=== PATIENT | male | born 1965 | race Two or more races ===

== ENCOUNTER 2025-02-28 05:36 | Day surgery (SDC) | payer OTHER ==
[2025-02-24 14:30] VITALS: BMI 27.3
[2025-02-28] MEDS ORDERED: Lidocaine 1% w/Epinephrine 1:200K 30 ML VIAL ONE (06:24)
[2025-02-28] MEDS ORDERED: Rocuronium Bromide 10 MG/ML (10ML VIAL) ONE (06:27)
[2025-02-28] MEDS ORDERED: Lidocaine 1% PF 5 ML VIAL ONE (06:27)
[2025-02-28] MEDS ORDERED: Ondansetron PF 4 MG/2 ML Vial ONE (06:27)
[2025-02-28] MEDS ORDERED: SUGAMMADEX SODIUM 200 MG/2 ML VIAL ONE (06:27)
[2025-02-28] MEDS ORDERED: PROPOFOL 40 ML ONE (06:28)
[2025-02-28] MEDS ORDERED: CEFAZOLIN 2 GM VIAL ONE (06:51)
[2025-02-28] MEDS ORDERED: Hydrocodone-Acetamin 15 ML UDCUP ONE (09:32)
== END 2025-02-28 11:00 | disposition home or self-care (01) ==
LOC: CSHSDC 05:36
PROVIDERS: ATTEND Otolaryngology Plastic Surgery within the Head & Neck
PROC: 0GTH0ZZ Resection of Right Thyroid Gland Lobe, Open Approach (ICD-10-PCS; principal; 2025-02-28)
DX: E04.1 Nontoxic single thyroid nodule (principal); R06.83 Snoring; I10 Essential (primary) hypertension; E11.9 Type 2 diabetes mellitus without complications; E78.5 Hyperlipidemia, unspecified; Z79.84 Long term (current) use of oral hypoglycemic drugs; Z79.899 Other long term (current) drug therapy
CPT/HCPCS: 88307; J1100; J2250; J2405; J2704; J3010